=== PATIENT | male | born 1995 | race Caucasian/White ===

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

== ENCOUNTER 2017-03-08 19:59 | Emergency (ER) | payer MEDICAID, OTHER ==
[~2017-03-08] VITALS: Ht 167.6 cm; Wt 72.5 kg
[~2017-03-08 19:59] MED LIST changes: +BENZ100C70 PO; +D-ME473S18 PO
[2017-03-08 20:23] VITALS: Ht 167.6 cm; Wt 72.5 kg
[2017-03-08] MEDS ORDERED: SOD CHLORIDE 0.9% 1,000 ML IV STA (22:08)
[2017-03-08] MEDS ORDERED: ONDANSETRON 4 MG INJ IV STA (22:08)
[2017-03-08] MEDS ORDERED: morphine 4 MG/ML VIAL IV STA (22:08)
--- NOTE | 2017-03-08 22:37 | ERD ---
ER Documentation Chief Complaint Date/Time DATE: 03/08/17 TIME: 22:35 Chief Complaint RLQ PAIN X3 HRS AGO. +NAUSEA DENIES FEVER HPI 21-year-old male presents to emergency department for complaints of right lower quadrant abdominal pain radiating to the right flank area started 3 hours prior to arrival. Patient describes the pain as throbbing pain, 8/10 scale, accompanied with nausea. Patient denies any fever or chills. Patient denies any vomiting. Patient denies any hematuria or dysuria. Patient denies any diarrhea or constipation. Patient did not take any medications to help with symptoms. ROS All systems reviewed and are negative except as per history of present illness. Medications Home Meds Reported Medications [none] Unknown Strength No Conflict Check 03/08/17 Allergies Allergies: Coded Allergies: No Known Allergy (Unverified , 03/08/17) PMhx/Soc Medical and Surgical Hx: pt denies Medical Hx, pt denies Surgical Hx History of Surgery: No Anesthesia Reaction: No Hx Neurological Disorder: No Hx Respiratory Disorders: No Hx Cardiac Disorders: No Hx Psychiatric Problems: No Hx Miscellaneous Medical Probl: No Hx Tobacco Use: No Smoking Status: Never smoker FmHx Family History: No coronary disease, No diabetes, No other Physical Exam Vitals Vital Signs Date Time Temp Pulse Resp B/P Pulse Ox O2 Delivery O2 Flow Rate FiO2 03/08/17 20:23 97.3 78 18 120/81 97 Physical Exam GENERAL: The patient is well developed and appropriate for usual state of health, in no apparent distress. CHEST: Clear to auscultation bilaterally. There are no rales, wheezes or rhonchi. HEART: Regular rate and rhythm. No murmurs, clicks, rubs or gallops. No S3 or S4. ABDOMEN: Soft, tenderness on palpation on the right lower quadrant. Good bowel sounds. No rebound or guarding. No gross peritonitis. No gross organomegaly or masses. No Serra sign. BACK: No midline or flank tenderness. EXTREMITIES: Equal pulses bilaterally. There is no peripheral clubbing, cyanosis or edema. No focal swelling or erythema. Full range of motion. Grossly neurovascularly intact. NEURO: Alert and oriented. Cranial nerves 2-12 intact. Motor strength in all 4 extremities with 5/5 strength. Sensation grossly intact. Normal speech and gait. SKIN: There is no apparent rash or petechia. The skin is warm and dry. HEMATOLOGIC AND LYMPHATIC: There is no evidence of excessive bruising or lymphedema. No gross cervical, axillary, or inguinal lymphadenopathy. Result Diagram: 03/08/17221903/08/172219 Results 24 hrs Laboratory Tests Test 03/08/17 22:20 White Blood Count 8.310^3/ul Red Blood Count 5.0510^6/ul Hemoglobin 15.8g/dl Hematocrit 45.9% Mean Corpuscular Volume 90.9fl Mean Corpuscular Hemoglobin 31.3pg Mean Corpuscular Hemoglobin Concent 34.4g/dl Red Cell Distribution Width 12.3% Platelet Count 74856^3/UL Mean Platelet Volume 9.7fl Neutrophils % 52.4% Lymphocytes % 35.1% Monocytes % 8.8% Eosinophils % 2.5% Basophils % 0.8% Nucleated Red Blood Cells % 0.0/100WBC Neutrophils # (Manual) 4.310^3/ul Lymphocytes # 2.910^3/ul Monocytes # 0.710^3/ul Eosinophils # 0.210^3/ul Basophils # 0.110^3/ul Nucleated Red Blood Cells # 0.010^3/ul Urine Color YELLOW Urine Clarity CLEAR Urine pH 7.0 Urine Specific [place] 1.023 Urine Ketones NEGATIVEmg/dL Urine Nitrite NEGATIVEmg/dL Urine Bilirubin NEGATIVEmg/dL Urine Urobilinogen NEGATIVEmg/dL Urine Leukocyte Esterase NEGATIVELeu/ul Urine Hemoglobin NEGATIVEmg/dL Urine Glucose NEGATIVEmg/dL Urine Total Protein NEGATIVEmg/dl Sodium Level 139mmol/L Potassium Level 3.9mmol/L Chloride Level 102mmol/L Carbon Dioxide Level 29mmol/L Anion Gap 12 Blood Urea Nitrogen 19mg/dl Creatinine 0.86mg/dl Glucose Level 82mg/dl Calcium Level 9.5mg/dl Total Bilirubin 0.3mg/dl Direct Bilirubin 0.00mg/dl Indirect Bilirubin 0.3mg/dl Aspartate Amino Transf (AST/SGOT) 30IU/L Alanine Aminotransferase (ALT/SGPT) 58IU/L Alkaline Phosphatase 104IU/L Total Protein 8.1g/dl Albumin 4.6g/dl Globulin 3.50g/dl Albumin/Globulin Ratio 1.31 Lipase 128U/L Current Medications Medications (Trade) Dose Ordered Sig/Apolinar Route PRN Reason Start Time Stop Time Status Last Admin Dose Admin Sodium Chloride (NS) 1,000 ml @ 1,000 mls/hr Q1H STAT IV 03/08/17 22:08 03/08/17 23:07 DC 03/08/17 22:47 Morphine Sulfate (morphine) 4 mg ONCE STAT IV 03/08/17 22:08 03/08/17 22:10 DC 03/08/17 22:42 Ondansetron HCl (Zofran Inj) 4 mg ONCE STAT IV 03/08/17 22:08 03/08/17 22:10 DC 03/08/17 22:42 Patient was given medication for pain here in emergency department, after treatment, patient verbalized feeling much better. Patient's pain is improved. Patient was given Zofran here in the emergency department. After treatment, patient was able to tolerate po fluids here in the emergency department without any vomiting. There is no signs and symptoms of dehydration. Normal saline IV bolus was given here in emergency department for rehydration, patient tolerated IV fluids. PROCEDURE: CT Abdomen and pelvis without contrast. CLINICAL INDICATION: Abdominal pain. TECHNIQUE: CT scan of the abdomen and pelvis was performed on a multi- detector high-resolution CT scanner. Contiguous axial images were obtained from the lung bases to the ischial tuberosities without intravenous contrast. Coronal and sagittal reformatted images were also obtained. Images were reviewed on the PACS workstation. One or more of the following dose reduction techniques were used: - Automated exposure control. - Adjustment of the mA and/or kV according to patient size. - Use of iterative reconstruction technique. Exam CTD/vol = 9.45 mGy. Total exam DLP = 516.83 mGy-cm. COMPARISON: None. FINDINGS: Evaluation of the lung bases demonstrates minimal left basilar atelectasis. Abdomen: The liver is normal in size. There is no focal mass or dilatation of the biliary tree. The gallbladder is not distended. The spleen, pancreas and bilateral adrenal glands are within normal limits. Bilateral kidneys are normal in size with no contour deforming mass identified. There is no radiopaque renal or ureteral calculus identified. There is no hydronephrosis or hydroureter. There is no retroperitoneal adenopathy. The abdominal aorta is of normal caliber. There is a tiny umbilical hernia containing fat. There is no abnormal bowel wall thickening or distension. There is no bowel obstruction or free air. A normal appendix is identified. There is no diverticulosis or diverticulitis. There is no ascites. Pelvis: The bladder is unremarkable. The prostate and seminal vesicles are within normal limits. There is no significant pelvic adenopathy or free fluid. Evaluation of the osseous structures demonstrates no suspicious lytic or blastic lesion. There is a defect of the left pars interarticularis of L5. IMPRESSION: No acute abnormality identified within the abdomen and pelvis. Left pars defect of L5. .Alexandre Salmeron MD, Date Time Electronically viewed and signed by .Alexandre Salmeron MD, MD on 03/08/2017 23:01 .T/ CC: CLARISSE GONZALEZ CD TECHNICIAN Procedures/MDM Medical Decision Making: Abdominal pain nonspecific at this time, can be abdominal wall strain, musculoskeletal pain, back pain back strain, no appendicitis noted, no leukocytosis, no bandemia, patient does not have any fever. can be also viral in origin. There is low suspicion for abdominal emergencies at this time. Patients abdominal exam is normal upon reevaluation. Patients radiology exam does not show any abdominal emergencies at this time. There is low suspicion for appendicitis, cholecystitis, abdominal aortic aneurysms or peritonitis at this time. There is low suspicion for sepsis. Patient appears well and is hemodynamically stable. Disposition: Home. Condition: Stable Prescription [place], Zofran Instructions: Patient is advised to take medications as prescribed. Patient is advised to rest, increase fluid intake and do brat diet for next 1-2 days and progress as tolerated. Patient is advised that if symptoms are worse, severe abdominal pain, uncontrolled vomiting, high fever, severe flank pain, worst signs and symptoms, to return to the emergency department immediately. Otherwise, patient can follow up with primary care doctor in 5-7 days. Disclaimer: Inadvertent spelling and grammatical errors are likely due to EHR/ dictation software use and do not reflect on the overall quality of patient care. Also, please note that the electronic time recorded on this note does not necessarily reflect the actual time of the patient encounter. Departure Diagnosis: Primary Impression: Abdominal pain Abdominal location: right lower quadrant Qualified Code: R10.31 - Right lower quadrant abdominal pain Condition: Stable Patient Instructions: Abdominal Pain Additional Instructions: Patient is advised to take medications as prescribed. Patient is advised to rest , increase fluid intake and do brat diet for next 1-2 days and progress as tolerated. Patient is advised that if symptoms are worse, severe abdominal pain , uncontrolled vomiting, high fever, severe flank pain, worst signs and symptoms , to return to the emergency department immediately. Otherwise, patient can follow up with primary care doctor in 5-7 days. CLARISSE GONZALEZ NP Mar 08, 2017 22:37
[2017-03-08 22:59] LABS: BASOPHIL # 0.1 10^3/ul (0.0-0.1); BASOPHILS % 0.8 % (0.0-2.0); EOSINOPHILS # 0.2 10^3/ul (0.0-0.5); EOSINOPHILS % 2.5 % (0.0-7.0); HEMATOCRIT 45.9 % (42.0-52.0); HEMOGLOBIN 15.8 g/dl (14.0-18.0); LYMPHOCYTES # 2.9 10^3/ul (0.8-2.9); LYMPHOCYTES % 35.1 % (18.0-55.0); MEAN CORPUSCULAR HEMOGLOBIN 31.3 pg (29.0-33.0); MEAN CORPUSCULAR HGB CONC 34.4 g/dl (32.0-37.0); MEAN CORPUSCULAR VOLUME 90.9 fl (72.0-104.0); MEAN PLATELET VOLUME 9.7 fl (7.4-10.4); MONOCYTE # 0.7 10^3/ul (0.3-0.9); MONOCYTES % 8.8 % (0.0-13.0); NEUTROPHILS % 52.4 % (30.0-74.0); PLATELET COUNT 285 10^3/UL (140-415); RED BLOOD COUNT 5.05 10^6/ul (4.70-6.10); RED CELL DISTRIBUTION WIDTH 12.3 % (11.5-14.5); WHITE BLOOD COUNT 8.3 10^3/ul (4.8-10.8)
--- NOTE | 2017-03-08 23:02 | RADRPT ---
PROCEDURE: CT Abdomen and pelvis without contrast. CLINICAL INDICATION: Abdominal pain. TECHNIQUE: CT scan of the abdomen and pelvis was performed on a multi-detector high-resolution CT scanner. Contiguous axial images were obtained from the lung bases to the ischial tuberosities wit hout intravenous contrast. Coronal and sagittal reformatted images were also obtained. Images were reviewed on the PACS workstation. One or more of the following dose reduction techniques were used: - Automated exposure control. - Adjustment of the mA and/or kV according to patient size. - Use of iterative reconstruction technique. Exam CTD/vol = 9.45 mGy. Total exam DLP = 516.83 mGy-cm. COMPARISON: None. FINDINGS: Evaluation of the lung bases demonstrates minimal left basilar atelectasis. Abdomen: The liver is normal in size. There is no focal mass or dilatation of the biliary tree. T he gallbladder is not distended. The spleen, pancreas and bilateral adrenal glands are within pippa l limits. Bilateral kidneys are normal in size with no contour deforming mass identified. There is no radiopaque renal or ureteral calculus identified. There is no hydronephrosis or hydroureter. T here is no retroperitoneal adenopathy. The abdominal aorta is of normal caliber. There is a tiny umbilical hernia containing fat. There is no abnormal bowel wall thickening or diste nsion. There is no bowel obstruction or free air. A normal appendix is identified. There is no di verticulosis or diverticulitis. There is no ascites. Pelvis: The bladder is unremarkable. The prostate and seminal vesicles are within normal limits. There is no significant pelvic adenopathy or free fluid. Evaluation of the osseous structures demonstrates no suspicious lytic or blastic lesion. There is a defect of the left pars interarticularis of L5. IMPRESSION: No acute abnormality identified within the abdomen and pelvis. Left pars defect of L5. .Alexandre Salmeron MD, Date Time Electronically viewed and signed by .Alexandre Salmeron MD, on 03/08/2017 23:01 .T/
[2017-03-08 23:17] LABS: ADD UMIC NO; UR ASCORBIC ACID NEGATIVE (NEGATIVE); UR BILIRUBIN (Dip) NEGATIVE (NEGATIVE); UR BLOOD (Dip) NEGATIVE (NEGATIVE); UR CLARITY CLEAR (CLEAR); UR COLOR YELLOW (YELLOW); UR GLUCOSE (Dip) NEGATIVE (NEGATIVE); UR KETONES (Dip) NEGATIVE (NEGATIVE); UR LEUKOCYTE ESTERASE (Dip) NEGATIVE Leu/ul (NEGATIVE); UR NITRITE (Dip) NEGATIVE (NEGATIVE); UR SPECIFIC GRAVITY (Dip) 1.023 (1.003-1.030); UR TOTAL PROTEIN (Dip) NEGATIVE (NEGATIVE); UR UROBILINOGEN (Dip) NEGATIVE (NEGATIVE)
[2017-03-08 23:23] LABS: ALBUMIN 4.6 g/dl (3.3-4.9); ALBUMIN/GLOBULIN RATIO 1.31; BILIRUBIN,INDIRECT 0.3 mg/dl (0-1.1); BILIRUBIN,TOTAL 0.3 mg/dl (0.2-1.3); CALCIUM 9.5 mg/dl (8.4-10.2); CREATININE 0.86 mg/dl (0.61-1.24); POTASSIUM 3.9 mmol/L (3.5-5.1); TOTAL PROTEIN 8.1 g/dl (6.1-8.1)
[2017-03-09] MEDS ORDERED: ONDA4TAB14 PO (00:36)
[2017-03-09] MEDS ORDERED: HYDR-906 PO (00:36)
[2017-03-09 01:21] VITALS: BP 132/82; PULSE 79; RESP 20; TEMP 97.6
== END 2017-03-09 01:00 | disposition home or self-care (01) ==
LOC: MERGE 19:59 → FTE 19:59
DX: R10.31 Right lower quadrant pain (principal); R11.0 Nausea
CPT/HCPCS: 36415; 74176; 80053; 81003; 83690; 85025; 96374; 96375; J2270; J2405; J7030; Z7502

== ENCOUNTER 2017-03-25 23:07 | Emergency (ER) | payer OTHER ==
[~2017-03-25] VITALS: Ht 167.6 cm; Wt 53.0 kg
[~2017-03-25 23:07] MED LIST changes: +HYDR-906 PO; +ONDA4TAB14 PO
[2017-03-25 23:10] VITALS: Ht 167.6 cm; Wt 53.0 kg
[2017-03-26] MEDS ORDERED: HC30CR25 TOP (00:26)
[2017-03-26] MEDS ORDERED: CLOT30CR24 TOP (00:26)
[2017-03-26] MEDS ORDERED: MUPI22OI2 TOP (00:27)
--- NOTE | 2017-03-26 03:35 | ERD ---
ER Documentation Chief Complaint Date/Time DATE: 03/26/17 TIME: 03:33 Chief Complaint scrotal pain since 4 pm today HPI This patient is a 22-year-old male presenting to the emergency department with complaints of rash to his groin area bilaterally. He first noticed this at 4 PM today. He denies scrotal pain, scrotal trauma, testicular swelling, penile discharge, fevers, chills, or other complaints currently. He is sexually active , however last sexual encounter was approximately 2 months ago. ROS All systems reviewed and are negative except as per history of present illness. Medications Home Meds Active Scripts Mupirocin* (Bactroban*) 2% -22 Gram Oint...g., 1 APPLIC TOP BID for 7 Days, #1 TUB Prov:ATIF MAYES PA-C 03/26/17 Hydrocortisone* Topical (Hydrocortisone* Topical) 2.5%-28.3 Gm Cream..g., 1 APPLIC TOP BID Y for ITCHING, #1 TUB Prov:ATIF MAYES PA-C 03/26/17 Clotrimazole* (Clotrimazole* AF) 1% - 30 Gm Cream.gm., 1 APPLIC TOP BID for 7 Days, #1 TUB Prov:ATIF MAYES PA-C 03/26/17 Ondansetron (Ondansetron Odt) 4 Mg Tab.rapdis, 4 MG PO Q8 Y for NAUSEA AND/OR VOMITING, #30 TAB Prov:CLARISSE GONZALEZ [employer] WORKER 03/09/17 Hydrocodone/Acetaminophen ([place] 5-325 Tablet) 1 Each Tablet, 1 TAB PO Q6H Y for SEVERE PAIN LEVEL 7-10, #20 TAB Prov:CLARISSE GONZALEZ [employer] WORK[employer] 03/09/17 Dextromethorphan Hb-Promethazine Hcl (Promethazine DM Syrup) 473 Ml Syrup, 5 ML PO QHS Y for COUGH, #100 ML Prov:ATIF MAYES PA-C 07/17/16 Benzonatate* (Tessalon Perle*) 100 Mg Capsule, 100 MG PO Q8H Y for COUGH, #20 CAP Prov:ATIF MAYES PA-C 07/17/16 Acetaminophen* (Tylophen*) 500 Mg Capsule, 1 CAP PO Q6H Y for PAIN AND OR ELEVATED TEMP, #20 CAP Prov:LO WANG PA-C 05/23/16 Reported Medications [none] Unknown Strength No Conflict Check 03/08/17 Discontinued Scripts Hydrocortisone* Topical (Hydrocortisone* Topical) 2.5%-28.3 Gm Cream..g., 1 APPLIC TOP BID for 5 Days, #1 TUB Prov:ATIF MAYES PA-C 03/26/17 Allergies Allergies: Coded Allergies: No Known Drug Allergies (Verified Allergy, Mild, 07/17/16) PMhx/Soc History of Surgery: No Anesthesia Reaction: No Hx Neurological Disorder: No Hx Respiratory Disorders: No Hx Cardiac Disorders: No Hx Psychiatric Problems: No Hx Miscellaneous Medical Probl: No Hx Alcohol Use: Yes (socially) Hx Substance Use: No Hx Tobacco Use: No Smoking Status: Never smoker Physical Exam Vitals Vital Signs Date Time Temp Pulse Resp B/P Pulse Ox O2 Delivery O2 Flow Rate FiO2 03/25/17 23:10 97.8 83 20 138/91 99 Physical Exam Const: Nontoxic, well-appearing male in no acute distress. Head: Atraumatic Eyes: Normal Conjunctiva ENT: Normal External Ears, Nose and Mouth. Neck: Full range of motion..~ No meningismus. Abd: Soft, non tender, non distended. Normal bowel sounds Exam: There is a macular papular rash noted to the groin area bilaterally Scrotum: Normal Hernia: None Testes/Epid: Non-tender w/ normal lie Lymph: No inguinal lymphadenopathy Discharge: None Skin: No petechiae or rashes Back: No midline or flank tenderness Ext: No cyanosis, or edema Neur: Awake and alert Psych: Normal Mood and Affect Procedures/MDM 22-year-old male presents to the emergency department with complaints of rash to his groin. Physical examination is concerning for bacterial versus fungal versus allergic rash. Low suspicion for sexually transmitted infections, testicular torsion, or other genitourinary emergencies. The patient was stable for discharge with a prescription for topical treatments for his rash. Strict ER return precautions were discussed. Close follow-up with the primary care physician was advised. Departure Diagnosis: Primary Impression: Rash and other nonspecific skin eruption Condition: Fair Patient Instructions: Self-Care for Skin Rashes Additional Instructions: Follow up with your PCP within the next 1-3 days for a repeat evaluation. If you require a referral to a specialist, your Primary Care Provider may be able to provide this for you. In most patient cases, a referral is not required. If you have further questions regarding this matter, please ask your Primary Care Provider. Return the the emergency department immediately if symptoms worsen or change. If you have any questions regarding medications, ask your pharmacist or us before you leave. If any adverse reactions, occur while taking your medications, discontinue the treatment and return to the emergency department immediately. If any new or worsening symptoms, uncontrolled fevers, or other unexplained symptoms occur, return to the emergency department immediately. Take your medications as directed, and complete the entire course of treatment. ATIF MAYES PA-C Mar 26, 2017 03:35
== END 2017-03-26 00:55 | disposition home or self-care (01) ==
LOC: FTE 23:07
DX: R21 Rash and other nonspecific skin eruption (principal)
CPT/HCPCS: 99283

== ENCOUNTER 2017-09-02 00:29 | Emergency (ER) | END 2017-09-02 06:40 | disposition home or self-care (01) ==

== ENCOUNTER 2017-09-05 23:36 | Emergency (ER) | END 2017-09-06 07:35 | disposition home or self-care (01) ==

== ENCOUNTER 2017-09-20 12:05 | Emergency (ER) | END 2017-09-20 15:01 | disposition home or self-care (01) ==

== ENCOUNTER 2017-11-15 12:57 | Emergency (ER) | END 2017-11-15 15:41 | disposition home or self-care (01) ==

== ENCOUNTER → 2018-03-11 | Emergency (ER) | END | disposition home or self-care (01) ==

== ENCOUNTER 2018-03-13 20:54 | Emergency (ER) | END 2018-03-14 00:45 | disposition home or self-care (01) ==

== ENCOUNTER 2018-04-22 13:40 | Emergency (ER) | END 2018-04-22 15:31 | disposition home or self-care (01) ==

== ENCOUNTER 2018-06-21 10:35 | Emergency (ER) | payer OTHER ==
[~2018-06-21] VITALS: Ht 167.6 cm; Wt 71.1 kg
[~2018-06-21 10:35] MED LIST changes: +BENZ-6 PO; -BENZ100C70 PO; +CLOT30CR24 TOP; +DICY10CA40 PO; +DOXY100T20 PO; +HC30CR25 TOP; +HYDR-4011 PO; -HYDR-906 PO; +IBUP-1541 PO; +IBUP-1542 PO; +MUPI22OI2 TOP; +NAPR-985 PO; +VALA10004 PO; +ZINC28OI TP
[2018-06-21 10:41] VITALS: Ht 167.6 cm; Wt 71.1 kg
[2018-06-21] MEDS ORDERED: CLOT30CR24 TOP (11:24)
--- NOTE | 2018-06-21 11:30 | ERD ---
ER Documentation Chief Complaint Chief Complaint Complains of testicular pain since today HPI Patient is a 23-year-old male who presents ER for concerns of testicular pain x 2 weeks. Patient also reports a rash in his groin region times 2 days. Patient states that his groin area is erythematous and itchy. Patient states that he has not showered for 2 days. Patient states he did work out and did remain in his sweaty clothes for a while prior to onset of rash. Patient denies any fevers or chills. Patient states he recently had sexual encounter with a new partner. Patient denies any penile discharge or bleeding. ROS All systems reviewed and are negative except as per history of present illness. Medications Home Meds Active Scripts Clotrimazole* (Clotrimazole* AF) 1% - 30 Gm Cream.gm., 1 APPLIC TOP BID for 7 Days, #1 TUB Prov:CAMERON RENO PA-C 06/21/18 Dicyclomine HCl (Dicyclomine HCl) 10 Mg Capsule, 10 MG PO TID PRN for ABDOMINAL CRAMPING, #20 CAP Prov:EDWINA SAEZ 03/14/18 Ibuprofen* (Ibuprofen*) 600 Mg Tablet, 600 MG PO Q6, #15 TAB Prov:EDWINA SAEZ 03/14/18 Ibuprofen* (Ibuprofen*) 400 Mg Tablet, 400 MG PO TID, #14 TAB Prov:JORDAN LOPEZ MD 11/15/17 Zinc Ox/Camphor/Phenol/Jones Ac (UNGUENTINE OINTMENT) 28 Gm Oint...g., 28 GM TP BID for 7 Days Prov:JORDAN LOPEZ MD 11/15/17 Valacyclovir HCl (Valtrex) 1,000 Mg Tablet, 1000 MG PO TID for 7 Days, TAB Prov:JORDAN LOPEZ MD 11/15/17 Naproxen* (Naprosyn*) 500 Mg Tablet, 500 MG PO BID PRN for PAIN AND/OR INFLAMMATION, #30 TAB Prov:CARA GUZMAN PA-C 09/20/17 Doxycycline Hyclate* (Doxycycline Hyclate*) 100 Mg Tablet.dr, 100 MG PO BID for 10 Days, TAB Prov:CARA GUZMAN PA-C 09/06/17 Ibuprofen* (Motrin*) 600 Mg Tab, 600 MG PO Q6H PRN for PAIN AND OR ELEVATED TEMP, #30 TAB Prov:CLARISSE GONZALEZ GERICARE AIDE TEACHER 09/02/17 Hydrocodone/Acetaminophen (Bigfoot 5-325 Tablet) 1 Each Tablet, 1 TAB PO Q6H PRN for PAIN, #7 TAB Prov:CAMERON RENO PA-C 04/28/17 Ibuprofen* (Motrin*) 600 Mg Tab, 600 MG PO Q6, #30 TAB Prov:CAMERON RENO PA-C 04/28/17 Mupirocin* (Bactroban*) 2% -22 Gram Oint...g., 1 APPLIC TOP BID for 7 Days, #1 TUB Prov:ATIF MAYES PA-C 03/26/17 Hydrocortisone* Topical (Hydrocortisone* Topical) 2.5%-28.3 Gm Cream..g., 1 APPLIC TOP BID PRN for ITCHING, #1 TUB Prov:ATIF MAYES PA-C 03/26/17 Clotrimazole* (Clotrimazole* AF) 1% - 30 Gm Cream.gm., 1 APPLIC TOP BID for 7 Days, #1 TUB Prov:ATIF MAYES PA-C 03/26/17 Ondansetron (Ondansetron Odt) 4 Mg Tab.rapdis, 4 MG PO Q8 PRN for NAUSEA AND/OR VOMITING, #30 TAB Prov:CLARISSE GONZALEZ NP 03/09/17 Hydrocodone/Acetaminophen (Bigfoot 5-325 Tablet) 1 Each Tablet, 1 TAB PO Q6H PRN for SEVERE PAIN LEVEL 7-10, #20 TAB Prov:CLARISSE GONZALEZ GERICARE AIDE TEACHER 03/09/17 Dextromethorphan Hb-Promethazine Hcl (Promethazine DM Syrup) 473 Ml Syrup, 5 ML PO QHS PRN for COUGH, #100 ML Prov:ATIF MAYES PA-C 07/17/16 Benzonatate* (Tessalon Perle*) 100 Mg Capsule, 100 MG PO Q8H PRN for COUGH, #20 CAP Prov:ATIF MAYES PA-C 07/17/16 Acetaminophen* (Tylophen*) 500 Mg Capsule, 1 CAP PO Q6H PRN for PAIN AND OR ELEVATED TEMP, #20 CAP Prov:LO WANG PA-C 05/23/16 Reported Medications [none] Unknown Strength No Conflict Check 03/08/17 Allergies Allergies: Coded Allergies: No Known Drug Allergies (Verified Allergy, Mild, 03/13/18) PMhx/Soc History of Surgery: No Anesthesia Reaction: No Hx Neurological Disorder: No Hx Respiratory Disorders: No Hx Cardiac Disorders: No Hx Psychiatric Problems: Yes (DEPRESSION, ANXIETY) Hx Miscellaneous Medical Probl: No Hx Alcohol Use: Yes (Socially) Hx Substance Use: No Hx Tobacco Use: Yes Smoking Status: Current every day smoker FmHx Family History: No diabetes Physical Exam Vitals Vital Signs Date Temp Pulse Resp B/P (MAP) Pulse Ox O2 O2 Flow FiO2 Time Delivery Rate 06/21/18 97.3 72 20 128/72 98 10:41 (90) Physical Exam nanotechnology engineering technician Pedro, present throughout this part of the encounter. GENERAL: Well-developed, well-nourished male. Appears in no acute distress. HEAD: Normocephalic, atraumatic. EYES: Pupils are equally reactive bilaterally. EOMs grossly intact. No conjunctival erythema. ENT: Moist mucous membranes. No uvula deviation. No kissing tonsils. NECK: Supple. No meningismus. Normal range of motion of the neck. LUNG: Clear to auscultation bilaterally. No rhonchi, wheezing, rales or coarse breath sounds. HEART: Regular rate and rhythm. No murmurs, rubs or gallops. ABDOMEN: No scars, ecchymosis or rashes noted. Soft, nontender, and nondistended. Positive bowel sounds in all four quadrants. No rebound tender ness, no guarding. (-) McBurney's point tenderness. No CVA tenderness. MALE GENITALIA: Normal, uncircumcised penis without any lesions, masses or deformities. No penile discharge noted. Normal scrotum with erythematous skin noted on the testicular sac as well as perineal area. EXTREMITIES: Equal pulses bilaterally. No peripheral clubbing, cyanosis or edema. No unilateral leg swelling. NEUROLOGIC: Alert and oriented. Moving all four extremities without any difficulty. Normal speech. Steady gait. SKIN: Normal color. Warm and dry. No rashes or lesions. Results 24 hrs Laboratory Tests Test 06/21/18 11:13 Urine Color YELLOW Urine Clarity CLEAR Urine pH 6.0 Urine Specific Manson 1.017 Urine Ketones NEGATIVE mg/dL Urine Nitrite NEGATIVE mg/dL Urine Bilirubin NEGATIVE mg/dL Urine Urobilinogen NEGATIVE mg/dL Urine Leukocyte Esterase NEGATIVE Tuyet/ul Urine Hemoglobin NEGATIVE mg/dL Urine Glucose NEGATIVE mg/dL Urine Total Protein NEGATIVE mg/dl Procedures/MDM ED COURSE: The patient was stable throughout ED course. I kept the patient and/or family informed of laboratory and diagnostic imaging results throughout the ED course. DIAGNOSTIC IMAGING: Read by radiologist. Patient: WENDY BARKER : 1995 Age: 23 Sex: M MR #: [id number] DOS: 06/21/18 1133 Ordering MD: CAMERON RENO PA-C Location: [facility]TE Room/Bed: PROCEDURE: US Scrotum. CLINICAL INDICATION: Pain, swelling TECHNIQUE: Multiple sonographic images of the scrotal region were obtained utilizing a linear array transducer with grayscale and color-flow and a Doppler imaging. The images were reviewed on a high-resolution PACS workstation. COMPARISON: 09/20/2017 FINDINGS: The right testicle is well visualized and has a normal echotexture. There are multiple echogenic foci. The right testicle measures 2.9 x 2.0 x 1.9 cm. There is normal color-flow. The right epididymis is visualized and unremarkable in appearance. There is normal color-flow. The left testicle is well visualized and has a normal echotexture. There are multiple echogenic foci. The left testicle measures 3.4 x 2.3 x 2.3 cm. There is normal color-flow. The left epididymis is visualized and is unremarkable in appearance. There is normal color-flow. There is a mild right hydrocele. RPTAT: AA IMPRESSION: Bilateral testicular microlithiasis. Mild right hydrocele. .Morales Gill MD, Date Time Electronically viewed and signed by .Morales Gill MD, MD on 06/21/2018 13:00 .S/ CC: CAMERON RENO PA-C [id number] MEDICAL DECISION MAKING: This is a 23-year-old male presents here for concerns of testicular pain times 2 weeks as well as rash in his testicular region times 2 days. Vital signs were reviewed. Patient was afebrile. Patient is not diabetic. Male nanotechnology engineering technician Pedro was present throughout examination and history. Physical exam findings were concerning for tinea cruris. Review of the patient's medical records show the patient has had similar testicular pain in the past. Patient has had a negative testicular ultrasound exams. I have low suspicion for testicular torsion at this time. UA was negative for acute infection or hematuria. Urine gonorrhea and chlamydia were pending. Patient was advised we will call him with results in 2-3 days. Patient will be treated based on results. Testicular ultrasound showed Bilateral testicular microlithiasis. Mild right hydrocele. At this time the patient presentation was consistent with tinea creases and hydrocele. Low suspicion for UTI, pyelonephritis, Ashutosh gangrene, nephrolithiasis, appendicitis, epididymitis, urethritis, orchitis, balanitis, prostatitis, phimosis, priapism, penile contusion, incarcerated hernia or strangulated hernia. Patient was nontoxic, [id number] prior to discharge. PRESCRIPTIONS: Clotrimazole cream DISCHARGE: At this time, patient is stable for discharge and outpatient management. Patient was advised to follow-up with urologist on outpatient basis. I have instructed the patient to follow-up with his/her primary care physician in 1-2 days. I have discussed with the patient the possibility of needing to see an social media content specialist for further workup and imaging if the pain persists. I have instructed the patient to promptly return to the ER for any new or worsening symptoms including increased pain, swelling, redness, warmth or fever. The patient and/or family expressed understanding of and agreement with this plan. All questions were answered. Home care instructions were provided. Disclaimer: Inadvertent spelling and grammatical errors are likely due to EHR/dictation software use and do not reflect on the overall quality of patient care. Also, please note that the electronic time recorded on this note does not necessarily reflect the actual time of the patient encounter. Departure Diagnosis: Primary Impression: Tinea cruris Additional Impressions: Screening for STD (sexually transmitted disease) Hydrocele Hydrocele type: unspecified Qualified Codes: N43.3 - Hydrocele, unspecified Condition: Fair Patient Instructions: Stephen Borreros, General Referrals: [facility] YOU HAVE RECEIVED A MEDICAL SCREENING EXAM AND THE RESULTS INDICATE THAT YOU DO NOT HAVE A CONDITION THAT REQUIRES URGENT TREATMENT IN THE EMERGENCY DEPARTMENT. FURTHER EVALUATION AND TREATMENT OF YOUR CONDITION CAN WAIT UNTIL YOU ARE SEEN IN YOUR DOCTORS OFFICE WITHIN THE NEXT 1-2 DAYS. IT IS YOUR RESPONSIBILITY TO MAKE AN APPOINTMENT FOR FOLOW-UP CARE. IF YOU HAVE A PRIMARY DOCTOR --you should call your primary doctor and schedule an appointment IF YOU DO NOT HAVE A PRIMARY DOCTOR YOU CAN CALL OUR PHYSICIAN REFERRAL HOTLINE AT IF YOU CAN NOT AFFORD TO SEE A PHYSICIAN YOU CAN CHOSE FROM THE FOLLOWING [facility] [address] [facility] [address] [facility] [facility] [address] [facility] [address] [facility] [address] [facility] [facility] [address] [facility] [facility] YOU HAVE RECEIVED A MEDICAL SCREENING EXAM AND THE RESULTS INDICATE THAT YOU DO NOT HAVE A CONDITION THAT REQUIRES URGENT TREATMENT IN THE EMERGENCY DEPARTMENT. FURTHER EVALUATION AND TREATMENT OF YOUR CONDITION CAN WAIT UNTIL YOU ARE SEEN IN YOUR DOCTORS OFFICE WITHIN THE NEXT 1-2 DAYS. IT IS YOUR RESPONSIBILITY TO MAKE AN APPOINTMENT FOR FOLOW-UP CARE. IF YOU HAVE A PRIMARY DOCTOR --you should call your primary doctor and schedule and appointment IF YOU DO NOT HAVE A PRIMARY DOCTOR YOU CAN CALL OUR PHYSICIAN REFERRAL HOTLINE AT . IF YOU CAN NOT AFFORD TO SEE A PHYSICIAN YOU CAN CHOSE FROM THE FOLLOWING [facility]: [facility] [address] [place] [address] [facility] [address] [place] [address] [address] Additional Instructions: Follow-up with your primary care physician for additional STD testing. Call your primary care doctor TOMORROW for an appointment during the next 1-2 days.See the doctor sooner or return here if your condition worsens before your appointment time. CAMERON RENO PA-C Jun 21, 2018 11:30
[2018-06-21 13:40] VITALS: BP 122/76; PULSE 74; RESP 18
== END 2018-06-21 13:41 | disposition home or self-care (01) ==
LOC: FTE 10:35
DX: B35.6 Tinea cruris (principal); N43.3 Hydrocele, unspecified; F17.210 Nicotine dependence, cigarettes, uncomplicated; Z11.3 Encounter for screening for infections with a predominantly sexual mode of transmission
CPT/HCPCS: 76870; 81003; 87591

== ENCOUNTER 2018-08-29 13:22 | Emergency (ER) | payer OTHER ==
[~2018-08-29] VITALS: Ht 172.7 cm; Wt 71.6 kg
[2018-08-29 13:35] VITALS: BP 124/80; PULSE 76; RESP 20; Ht 172.7 cm; Wt 71.6 kg
[2018-08-29] MEDS ORDERED: AMOX500C2 PO (16:09)
[2018-08-29] MEDS ORDERED: IBUP-1542 PO (16:10)
[2018-08-29] MEDS ORDERED: GUAI5SYR2 PO (16:15)
--- NOTE | 2018-08-29 16:15 | ERD ---
ER Documentation Chief Complaint Chief Complaint Complains of a sore throat with fever x 2 days HPI Patient is a 23-year-old male who presents the ER for concern of throat pain times 1 week. Patient states he feels a lump in his left neck. Patient states that the lump is tender. Patient denies any drooling, trismus or hyperextension of his neck. Patient states initially had fevers however no recent fevers.. Patient does report a mild dry cough. Patient denies any nausea, vomiting bowel pain or diarrhea. Patient denies any neck pain or neck stiffness. No recent travel. ROS All systems reviewed and are negative except as per history of present illness. Medications Home Meds Active Scripts Ibuprofen* (Motrin*) 600 Mg Tab, 600 MG PO Q6, #30 TAB Prov:CAMERON RENO PA-C 08/29/18 Amoxicillin* (Amoxicillin*) 500 Mg Cap, 500 MG PO BID for 7 Days, CAP Prov:CAMERON RENO PA-C 08/29/18 Clotrimazole* (Clotrimazole* AF) 1% - 30 Gm Cream.gm., 1 APPLIC TOP BID for 7 Days, #1 TUB Prov:CAMERON RENO PA-C 06/21/18 Dicyclomine HCl (Dicyclomine HCl) 10 Mg Capsule, 10 MG PO TID PRN for ABDOMINAL CRAMPING, #20 CAP Prov:EDWINA SAEZ 03/14/18 Ibuprofen* (Ibuprofen*) 600 Mg Tablet, 600 MG PO Q6, #15 TAB Prov:EDWINA SAEZ 03/14/18 Ibuprofen* (Ibuprofen*) 400 Mg Tablet, 400 MG PO TID, #14 TAB Prov:JORDAN LOPEZ MD 11/15/17 Zinc Ox/Camphor/Phenol/Jones Ac (UNGUENTINE OINTMENT) 28 Gm Oint...g., 28 GM TP BID for 7 Days Prov:JORDAN LOPEZ MD 11/15/17 Valacyclovir HCl (Valtrex) 1,000 Mg Tablet, 1000 MG PO TID for 7 Days, TAB Prov:JORDAN LOPEZ MD 11/15/17 Naproxen* (Naprosyn*) 500 Mg Tablet, 500 MG PO BID PRN for PAIN AND/OR INFLAMMATION, #30 TAB Prov:CARA GUZMAN PA-C 09/20/17 Doxycycline Hyclate* (Doxycycline Hyclate*) 100 Mg Tablet.dr, 100 MG PO BID for 10 Days, TAB Prov:CARA GUZMAN PA-C 09/06/17 Ibuprofen* (Motrin*) 600 Mg Tab, 600 MG PO Q6H PRN for PAIN AND OR ELEVATED TEMP, #30 TAB Prov:CLARISSE GONZALEZ NP 09/02/17 Hydrocodone/Acetaminophen (Spring[place] 5-325 Tablet) 1 Each Tablet, 1 TAB PO Q6H PRN for PAIN, #7 TAB Prov:CAMERON RENO PA-C 04/28/17 Ibuprofen* (Motrin*) 600 Mg Tab, 600 MG PO Q6, #30 TAB Prov:CAMERON RENO PA-C 04/28/17 Mupirocin* (Bactroban*) 2% -22 Gram Oint...g., 1 APPLIC TOP BID for 7 Days, #1 TUB Prov:ATIF MAYES PA-C 03/26/17 Hydrocortisone* Topical (Hydrocortisone* Topical) 2.5%-28.3 Gm Cream..g., 1 APPLIC TOP BID PRN for ITCHING, #1 TUB Prov:ATIF MAYES PA-C 03/26/17 Clotrimazole* (Clotrimazole* AF) 1% - 30 Gm Cream.gm., 1 APPLIC TOP BID for 7 Days, #1 TUB Prov:ATIF MAYES PA-C 03/26/17 Ondansetron (Ondansetron Odt) 4 Mg Tab.rapdis, 4 MG PO Q8 PRN for NAUSEA AND/OR VOMITING, #30 TAB Prov:CLARISSE GONZALEZ NP 03/09/17 Hydrocodone/Acetaminophen ([place] 5-325 Tablet) 1 Each Tablet, 1 TAB PO Q6H PRN for SEVERE PAIN LEVEL 7-10, #20 TAB Prov:CLARISSE GONZALEZ NP 03/09/17 Dextromethorphan Hb-Promethazine Hcl (Promethazine DM Syrup) 473 Ml Syrup, 5 ML PO QHS PRN for COUGH, #100 ML Prov:ATIF MAYES PA-C 07/17/16 Benzonatate* (Tessalon Perle*) 100 Mg Capsule, 100 MG PO Q8H PRN for COUGH, #20 CAP Prov:ATIF MAYES PA-C 07/17/16 Acetaminophen* (Tylophen*) 500 Mg Capsule, 1 CAP PO Q6H PRN for PAIN AND OR ELEVATED TEMP, #20 CAP Prov:LO WANG PA-C 05/23/16 Reported Medications [none] Unknown Strength No Conflict Check 03/08/17 Allergies Allergies: Coded Allergies: No Known Drug Allergies (Verified Allergy, Mild, 03/13/18) PMhx/Soc History of Surgery: No Anesthesia Reaction: No Hx Neurological Disorder: No Hx Respiratory Disorders: No Hx Cardiac Disorders: No Hx Psychiatric Problems: Yes (DEPRESSION, ANXIETY) Hx Miscellaneous Medical Probl: No Hx Alcohol Use: Yes (Socially) Hx Substance Use: No Hx Tobacco Use: Yes Smoking Status: Current some day smoker FmHx Family History: No diabetes Physical Exam Vitals Vital Signs Date Temp Pulse Resp B/P (MAP) Pulse Ox O2 O2 Flow FiO2 Time Delivery Rate 08/29/18 97.8 76 20 124/80 98 13:35 (95) Physical Exam GENERAL: Well-developed, well-nourished male. Appears in no acute distress. HEAD: Normocephalic, atraumatic. No deformities or ecchymosis. EYE: Pupils equal, round, and reactive to light. EOMs intact. No conjunctival erythema. No eye discharge. ENT: External ear without any masses or tenderness. Auditory canals clear bilaterally. TM visualized bilaterally, non-erythematous, non-bulging. Nasal mucosa pink with no discharge. Oropharynx is erythematous. No uvula deviation. No kissing tonsils. NECK: Supple. No meningismus. Normal ROM of the neck. Tender right cervical lymphadenopathy noted, 1 cm, round, movable. LUNG: Clear to auscultation bilaterally. No rhonchi, wheezing, rales or coarse breath sounds. HEART: Regular rate and rhythm. No murmurs, rubs or gallops. EXTREMITIES: Equal pulses bilaterally. No peripheral clubbing, cyanosis or edema. No unilateral leg swelling. NEUROLOGIC: Alert and oriented to person, place and time. Moving all four extremities. 5/5 strength in all extremities. Normal speech. Steady gait. SKIN: Normal color. Warm and dry. No rashes or lesions. Procedures/MDM MEDICAL DECISION MAKING: This is a 23-year-old male presents the ER for concerns of throat pain times 1 week. Vital signs were reviewed. Patient was afebrile. Patient was not hypoxic. Centor score was 3 out of 4. I will empirically treat patient with course of antibiotics at this time. Low suspicion for pneumonia, meningitis, sinusitis, otitis externa, acute otitis media, epiglottitis or peritonsillar abscess. Patient was nontoxic, [id number] prior to discharge. PRESCRIPTIONS: Amoxicillin, ibuprofen, Robitussin DM DISCHARGE: At this time, patient is stable for discharge and outpatient management. Supportive therapies such as OTC throat lozenges, salt water gurgles, popsicles and jello discussed. I have instructed the patient to follow-up with his/her primary care physician in 1-2 days. I have instructed the patient to promptly return to the ER for any new or worsening symptoms including increased pain, swelling, fever, nausea, vomiting, weakness or difficulty breathing. The patient and/or family expressed understanding of and agreement with this plan. All questions were answered. Home care instructions were provided. Disclaimer: Inadvertent spelling and grammatical errors are likely due to EHR/dictation software use and do not reflect on the overall quality of patient care. Also, please note that the electronic time recorded on this note does not necessarily reflect the actual time of the patient encounter. Departure Diagnosis: Primary Impression: Pharyngitis Pharyngitis/tonsillitis etiology: unspecified etiology Qualified Codes: J02.9 - Acute pharyngitis, unspecified Condition: Stable Patient Instructions: Pharyngitis, Strep (Presumed) Referrals: [facility] YOU HAVE RECEIVED A MEDICAL SCREENING EXAM AND THE RESULTS INDICATE THAT YOU DO NOT HAVE A CONDITION THAT REQUIRES URGENT TREATMENT IN THE EMERGENCY DEPARTMENT. FURTHER EVALUATION AND TREATMENT OF YOUR CONDITION CAN WAIT UNTIL YOU ARE SEEN IN YOUR DOCTORS OFFICE WITHIN THE NEXT 1-2 DAYS. IT IS YOUR RESPONSIBILITY TO MAKE AN APPOINTMENT FOR FOLOW-UP CARE. IF YOU HAVE A PRIMARY DOCTOR --you should call your primary doctor and schedule an appointment IF YOU DO NOT HAVE A PRIMARY DOCTOR YOU CAN CALL OUR PHYSICIAN REFERRAL HOTLINE AT IF YOU CAN NOT AFFORD TO SEE A PHYSICIAN YOU CAN CHOSE FROM THE FOLLOWING [facility] [address] [facility] [address] [facility] [address] [facility] [address] [facility] [address] [facility]. [address] [facility]. [facility] YOU HAVE RECEIVED A MEDICAL SCREENING EXAM AND THE RESULTS INDICATE THAT YOU DO NOT HAVE A CONDITION THAT REQUIRES URGENT TREATMENT IN THE EMERGENCY DEPARTMENT. FURTHER EVALUATION AND TREATMENT OF YOUR CONDITION CAN WAIT UNTIL YOU ARE SEEN IN YOUR DOCTORS OFFICE WITHIN THE NEXT 1-2 DAYS. IT IS YOUR RESPONSIBILITY TO MAKE AN APPOINTMENT FOR FOLOW-UP CARE. IF YOU HAVE A PRIMARY DOCTOR --you should call your primary doctor and schedule and appointment IF YOU DO NOT HAVE A PRIMARY DOCTOR YOU CAN CALL OUR PHYSICIAN REFERRAL HOTLINE AT . IF YOU CAN NOT AFFORD TO SEE A PHYSICIAN YOU CAN CHOSE FROM THE FOLLOWING [facility]: [facility] [address] [place] [address] [facility] [address] [place] [address] [facility] [address] [place] [address] Additional Instructions: Call your primary care doctor TOMORROW for an appointment during the next 1-2 days.See the doctor sooner or return here if your condition worsens before your appointment time. CAMERON RENO PA-C Aug 29, 2018 16:15
== END 2018-08-29 16:45 | disposition home or self-care (01) ==
LOC: FTE 13:22
DX: J02.9 Acute pharyngitis, unspecified (principal); F17.210 Nicotine dependence, cigarettes, uncomplicated
CPT/HCPCS: 99283

== ENCOUNTER 2018-11-04 12:01 | Emergency (ER) | payer OTHER ==
[~2018-11-04] VITALS: Ht 165.1 cm; Wt 74.1 kg
[~2018-11-04 12:01] MED LIST changes: +AMOX500C2 PO; +GUAI5SYR2 PO
[2018-11-04 12:03] VITALS: BP 148/94; PULSE 90; RESP 19; Ht 165.1 cm; Wt 74.1 kg
[2018-11-04] MEDS ORDERED: LORAZEPAM 0.5 MG TAB PO ONE (12:30)
--- NOTE | 2018-11-04 13:44 | ERD ---
ER Documentation Chief Complaint Chief Complaint pressure like pain @ left chest and left arm numbness HPI Patient is a 23-year-old male with past medical history of anxiety, who presents ER for concerns of a left-sided chest pain which started around 7:30 AM today. Patient states he also feels that his left arm is numb and his fingers and hands are tingling.. Patient states the pain feels as if it is a pressure-like sensation. Pain comes and goes. Patient states he also feels as if his heart is racing. Patient denies any associated shortness of breath, nausea, vomiting, diaphoresis, LOC. Patient denies any fevers or chills. Patient denies cough. Patient states his symptoms started after he went to a doctor's appointment to check on his "stomach ulcers". Patient states he is stressed about his "health". Patient denies any homicidal or suicidal ideations. Patient denied any leg swelling, recent surgeries, travel. ROS All systems reviewed and are negative except as per history of present illness. Medications Home Meds Active Scripts Guaifenesin-Dextromethorphan* (Robitussin* DM) 100MG/10MG/5ML Syrup, 5 ML PO Q4H PRN for COUGH, #4 OZ Prov:CAMERON RENO-C 08/29/18 Ibuprofen* (Motrin*) 600 Mg Tab, 600 MG PO Q6, #30 TAB Prov:CAMERON RENO-C 08/29/18 Amoxicillin* (Amoxicillin*) 500 Mg Cap, 500 MG PO BID for 7 Days, CAP Prov:CAMERON RENO-C 08/29/18 Clotrimazole* (Clotrimazole* AF) 1% - 30 Gm Cream.gm., 1 APPLIC TOP BID for 7 Days, #1 TUB Prov:CAMERON RENO-C 06/21/18 Dicyclomine HCl (Dicyclomine HCl) 10 Mg Capsule, 10 MG PO TID PRN for ABDOMINAL CRAMPING, #20 CAP Prov:SEEDWINA JAMES C 03/14/18 Ibuprofen* (Ibuprofen*) 600 Mg Tablet, 600 MG PO Q6, #15 TAB Prov:EDWINA SAEZ 03/14/18 Ibuprofen* (Ibuprofen*) 400 Mg Tablet, 400 MG PO TID, #14 TAB Prov:VICENTE-AMIN,JORDAN MD 11/15/17 Zinc Ox/Camphor/Phenol/Jones Ac (UNGUENTINE OINTMENT) 28 Gm Oint...g., 28 GM TP BID for 7 Days Prov:JORDAN LOPEZ MD 11/15/17 valACYclovir HCl (Valtrex) 1,000 Mg Tablet, 1000 MG PO TID for 7 Days, TAB Prov:JORDAN LOPEZ MD 11/15/17 Naproxen* (Naprosyn*) 500 Mg Tablet, 500 MG PO BID PRN for PAIN AND/OR INFLAMMATION, #30 TAB Prov:CARA GUZMAN PA-C 09/20/17 Doxycycline Hyclate* (Doxycycline Hyclate*) 100 Mg Tablet.dr, 100 MG PO BID for 10 Days, TAB Prov:CARA GUZMAN PA-C 09/06/17 Ibuprofen* (Motrin*) 600 Mg Tab, 600 MG PO Q6H PRN for PAIN AND OR ELEVATED TEMP, #30 TAB Prov:CLARISSE GONZALEZ NP 09/02/17 Hydrocodone/Acetaminophen ([place] 5-325 Tablet) 1 Each Tablet, 1 TAB PO Q6H PRN for PAIN, #7 TAB Prov:CAMERON RENO PA-C 04/28/17 Ibuprofen* (Motrin*) 600 Mg Tab, 600 MG PO Q6, #30 TAB Prov:CAMERON RENO PA-C 04/28/17 Mupirocin* (Bactroban*) 2% -22 Gram Oint...g., 1 APPLIC TOP BID for 7 Days, #1 TUB Prov:ATIF MAYES PA-C 03/26/17 Hydrocortisone* Topical (Hydrocortisone* Topical) 2.5%-28.3 Gm Cream..g., 1 APPLIC TOP BID PRN for ITCHING, #1 TUB Prov:ATIF MAYES PA-C 03/26/17 Clotrimazole* (Clotrimazole* AF) 1% - 30 Gm Cream.gm., 1 APPLIC TOP BID for 7 Days, #1 TUB Prov:ATIF MAYES PA-C 03/26/17 Ondansetron (Ondansetron Odt) 4 Mg Tab.rapdis, 4 MG PO Q8 PRN for NAUSEA AND/OR VOMITING, #30 TAB Prov:CLARISSE GONZALEZ NP 03/09/17 Hydrocodone/Acetaminophen ([place] 5-325 Tablet) 1 Each Tablet, 1 TAB PO Q6H PRN for SEVERE PAIN LEVEL 7-10, #20 TAB Prov:CLARISSE GONZALEZ NP 03/09/17 Dextromethorphan Hb-Promethazine Hcl (Promethazine DM Syrup) 473 Ml Syrup, 5 ML PO QHS PRN for COUGH, #100 ML Prov:ATIF MAYES PA-C 07/17/16 Benzonatate* (Tessalon Perle*) 100 Mg Capsule, 100 MG PO Q8H PRN for COUGH, #20 CAP Prov:ATIF MAYES PA-C 07/17/16 Acetaminophen* (Tylophen*) 500 Mg Capsule, 1 CAP PO Q6H PRN for PAIN AND OR ELEVATED TEMP, #20 CAP Prov:LO WANG PA-C 05/23/16 Reported Medications [none] Unknown Strength No Conflict Check 03/08/17 Allergies Allergies: Coded Allergies: No Known Drug Allergies (Verified Allergy, Mild, 03/13/18) PMhx/Soc Medical and Surgical Hx: pt denies Medical Hx, pt denies Surgical Hx History of Surgery: No Anesthesia Reaction: No Hx Neurological Disorder: No Hx Respiratory Disorders: No Hx Cardiac Disorders: No Hx Psychiatric Problems: Yes (DEPRESSION, ANXIETY) Hx Miscellaneous Medical Probl: No Hx Alcohol Use: Yes (Socially) Hx Substance Use: No Hx Tobacco Use: Yes FmHx Family History: No diabetes Physical Exam Vitals Vital Signs Date Temp Pulse Resp B/P (MAP) Pulse Ox O2 O2 Flow FiO2 Time Delivery Rate 11/04/18 97.5 90 19 148/94 97 12:03 (112) Physical Exam GENERAL: Well-developed, well-nourished male. Appears in no acute distress. Speaking in full sentences. HEAD: Normocephalic, atraumatic. EYES: Pupils are equally reactive bilaterally. EOMs grossly intact. No conjunctival erythema. ENT: Moist mucous membranes. No uvula deviation. No kissing tonsils. NECK: Supple. No meningismus. Normal range of motion of the neck. LUNG: Clear to auscultation bilaterally. No rhonchi, wheezing, rales or coarse breath sounds. HEART: Regular rate and rhythm. No murmurs, rubs or gallops. Equal pulses in bilateral upper extremities. EXTREMITIES: Equal pulses bilaterally. No peripheral clubbing, cyanosis or edema. No unilateral leg swelling. Able to move bilateral upper extremities without any difficulty. Equal shank breaker strength bilaterally. NEUROLOGIC: Alert and oriented. Moving all four extremities without any difficulty. Normal speech. Steady gait. SKIN: Normal color. Warm and dry. No rashes or lesions. Result Diagram: 11/04/18 1230 11/04/18 1230 Results 24 hrs Laboratory Tests Test 11/04/18 12:30 White Blood Count 6.1 10^3/ul Red Blood Count 5.43 10^6/ul Hemoglobin 16.6 g/dl Hematocrit 48.0 % Mean Corpuscular Volume 88.4 fl Mean Corpuscular Hemoglobin 30.6 pg Mean Corpuscular Hemoglobin Concent 34.6 g/dl Red Cell Distribution Width 12.0 % Platelet Count 286 10^3/UL Mean Platelet Volume 9.3 fl Immature Granulocytes % 0.200 % Neutrophils % 61.3 % Lymphocytes % 27.8 % Monocytes % 7.9 % Eosinophils % 1.8 % Basophils % 1.0 % Nucleated Red Blood Cells % 0.0 /100WBC Immature Granulocytes # 0.010 10^3/ul Neutrophils # 3.8 10^3/ul Lymphocytes # 1.7 10^3/ul Monocytes # 0.5 10^3/ul Eosinophils # 0.1 10^3/ul Basophils # 0.1 10^3/ul Nucleated Red Blood Cells # 0.0 10^3/ul Sodium Level 142 mmol/L Potassium Level 4.4 mmol/L Chloride Level 106 mmol/L Carbon Dioxide Level 26 mmol/L Anion Gap 10 Blood Urea Nitrogen 14 mg/dl Creatinine 0.66 mg/dl Est Glomerular Filtrat Rate mL/min > 60 mL/min Glucose Level 104 mg/dl Calcium Level 9.7 mg/dl Troponin I < 0.012 ng/ml Current Medications Medications Dose Sig/Apolinar Start Time Status Last (Trade) Ordered Route PRN Stop Time Admin Dose Reason Admin Lorazepam 0.5 mg ONCE ONCE 11/04/18 DC 11/04/18 (Ativan) PO 12:30 12:40 11/04/18 12:31 Procedures/MDM x ED COURSE: The patient was stable throughout ED course. I kept the patient and/or family informed of laboratory and diagnostic imaging results throughout the ED course. EKG: Read by Dr. Razo, attending physician. EKG shows normal sinus rhythm at a rate of 84 bpm No arrhythmias, acute ST elevations or T wave changes were noted. DIAGNOSTIC IMAGING: Read by radiologist. Patient: WENDY BARKER : 1995 Age: 23 Sex: M MR #: [id number] DOS: 11/04/18 1319 Ordering MD: CAMERON RENO PA-C Location: [facility] Room/Bed: PROCEDURE: XR Chest. CLINICAL INDICATION: chest pain TECHNIQUE: Single frontal view of the chest was obtained COMPARISON: CR CHEST 06/02/2012 FINDINGS: The right lung apex was not completely included. The heart and mediastinum are within normal limits. The lungs are clear. There is no pleural effusion or pneumothorax. RPTAT: AA IMPRESSION: No acute disease. .Morales Gill MD, MD Date Time Electronically viewed and signed by .Morales Gill MD, MD on 11/04/2018 14:14 .S/ CC: CAMERON RENO PA-C [id number] PROCEDURES: None. MEDICATIONS GIVEN: Ativan MEDICAL DECISION MAKING: Review of the patient's [facility] records shows that patient has had 7 visits to the emergency department in the last 12 months. This is a 23-year-old male with past medical history of anxiety presents ER for concerns of left-sided chest pain, left arm numbness, palpitations and hand numbness and tingling which started around 7:30 AM. Symptoms started after doctor's visit. Patient states he is feeling anxious secondary to his health concerns. Patient denied any leg swelling, recent surgeries, travel. Vital signs were reviewed. Patient was afebrile. Patient was not hypoxic. Cardiac exam was normal. Lung exam was normal. EKG was within normal limits. Low suspicion for acute coronary syndrome, arrhythmia or pericarditis. CXR was within normal limits. Low suspicion for aortic dissection, pneumothorax, pneumonia or pleural effusion. PERC score is 0. Low suspicion for PE. Patient's HEART score is low. Low suspicion for acute cardiac event in the next 6 weeks. Patient was given Ativan here in the ER and did report improvement in symptoms. I do feel that patient's symptoms are likely related to anxiety. Patient was advised on stress management and anxiety reactions. Patient was nontoxic, [id number] prior to discharge. DISCHARGE: At this time, patient is stable for discharge and outpatient management. I have instructed the patient to follow-up with his/her primary care physician in 1-2 days. If symptoms persist, patient may need to see a specialist for further examinations and testing. I have instructed the patient to promptly return to the ER at any time for any new or worsening symptoms including increased increa sed pain, fever, nausea, vomiting, numbness, weakness, diaphoresis or LOC. The patient and/or family expressed understanding of and agreement with this plan. All questions were answered. Home care instructions were provided. Disclaimer: Inadvertent spelling and grammatical errors are likely due to EHR/dictation software use and do not reflect on the overall quality of patient care. Also, please note that the electronic time recorded on this note does not necessarily reflect the actual time of the patient encounter. Departure Diagnosis: Primary Impression: Chest pain Chest pain type: unspecified Qualified Codes: R07.9 - Chest pain, unspecified Additional Impression: Anxiousness Condition: Fair Patient Instructions: Anxiety Reaction, Chest Pain, Uncertain Cause Referrals: [facility] YOU HAVE RECEIVED A MEDICAL SCREENING EXAM AND THE RESULTS INDICATE THAT YOU DO NOT HAVE A CONDITION THAT REQUIRES URGENT TREATMENT IN THE EMERGENCY DEPARTMENT. FURTHER EVALUATION AND TREATMENT OF YOUR CONDITION CAN WAIT UNTIL YOU ARE SEEN IN YOUR DOCTORS OFFICE WITHIN THE NEXT 1-2 DAYS. IT IS YOUR RESPONSIBILITY TO MAKE AN APPOINTMENT FOR FOLOW-UP CARE. IF YOU HAVE A PRIMARY DOCTOR --you should call your primary doctor and schedule an appointment IF YOU DO NOT HAVE A PRIMARY DOCTOR YOU CAN CALL OUR PHYSICIAN REFERRAL HOTLINE AT IF YOU CAN NOT AFFORD TO SEE A PHYSICIAN YOU CAN CHOSE FROM THE FOLLOWING [facility] [address] [facility] [address] [facility] [address] [facility] [address] [facility] [address] [facility] [facility] [address] [facility]. [facility] YOU HAVE RECEIVED A MEDICAL SCREENING EXAM AND THE RESULTS INDICATE THAT YOU DO NOT HAVE A CONDITION THAT REQUIRES URGENT TREATMENT IN THE EMERGENCY DEPARTMENT. FURTHER EVALUATION AND TREATMENT OF YOUR CONDITION CAN WAIT UNTIL YOU ARE SEEN IN YOUR DOCTORS OFFICE WITHIN THE NEXT 1-2 DAYS. IT IS YOUR RESPONSIBILITY TO MAKE AN APPOINTMENT FOR FOLOW-UP CARE. IF YOU HAVE A PRIMARY DOCTOR --you should call your primary doctor and schedule and appointment IF YOU DO NOT HAVE A PRIMARY DOCTOR YOU CAN CALL OUR PHYSICIAN REFERRAL HOTLINE AT . IF YOU CAN NOT AFFORD TO SEE A PHYSICIAN YOU CAN CHOSE FROM THE FOLLOWING [facility] INSTITUTIONS: [facility] [address] [place] [address] [facility] [address] [place] [address] [facility] + [facility] [address] [place] [address] Additional Instructions: Call your primary care doctor TOMORROW for an appointment during the next 1-2 days.See the doctor sooner or return here if your condition worsens before your appointment time. CAMERON RENO PA-C November 04, 2018 13:44
== END 2018-11-04 15:24 | disposition home or self-care (01) ==
LOC: FTE 12:01
DX: R07.9 Chest pain, unspecified (principal); F41.9 Anxiety disorder, unspecified; Z87.891 Personal history of nicotine dependence
CPT/HCPCS: 36415; 71045; 80048; 84484; 85025; 93005

== ENCOUNTER 2018-11-21 01:07 | Emergency (ER) | payer OTHER ==
[~2018-11-21] VITALS: Ht 165.1 cm; Wt 74.8 kg
[2018-11-21 01:13] VITALS: Ht 165.1 cm; Wt 74.8 kg
[2018-11-21] MEDS ORDERED: ACETAMINOPHEN 500 MG TAB PO STA (02:38)
[2018-11-21] MEDS ORDERED: ACET500C5 PO (02:47)
--- NOTE | 2018-11-21 03:08 | ERD ---
ER Documentation Chief Complaint Chief Complaint Pt reports laughing too hard at work and hit head on wall HPI Does not take blood thinners this is a 23-year-old male with a nonsignificant past medical history presents ED after striking head on wall around 10 AM this morning. Patient states that he was laughing to hard at work and accidentally struck his posterior head on a wall. Patient did not have any loss of consciousness with this event. Patient has been having a headache that has been gradual in onset and not the worst headache of his life. Patient admits to feeling slightly lightheaded with some brain fogginess. Patient denies any blurry vision, changes in vision, dizziness, worst headache of life, confusion, weakness, tingling, numbness. Patient admits to feeling nauseous with one episode of vomiting. Does not take blood thinners. ROS All systems reviewed and are negative except as per history of present illness. Medications Home Meds Active Scripts Acetaminophen* (Tylophen*) 500 Mg Capsule, 1 CAP PO Q6H PRN for PAIN AND OR ELEVATED TEMP, #20 CAP Prov:JESSE VELEZ PA-C 11/21/18 Guaifenesin-Dextromethorphan* (Robitussin* DM) 100MG/10MG/5ML Syrup, 5 ML PO Q4H PRN for COUGH, #4 OZ Prov:CAMERON RENO PA-C 08/29/18 Ibuprofen* (Motrin*) 600 Mg Tab, 600 MG PO Q6, #30 TAB Prov:CAMERON RENO PA-C 08/29/18 Amoxicillin* (Amoxicillin*) 500 Mg Cap, 500 MG PO BID for 7 Days, CAP Prov:CAMERON RENO PA-C 08/29/18 Clotrimazole* (Clotrimazole* AF) 1% - 30 Gm Cream.gm., 1 APPLIC TOP BID for 7 Days, #1 TUB Prov:CAMERON RENO PA-C 06/21/18 Dicyclomine HCl (Dicyclomine HCl) 10 Mg Capsule, 10 MG PO TID PRN for ABDOMINAL CRAMPING, #20 CAP Prov:EDWINA SAEZ 03/14/18 Ibuprofen* (Ibuprofen*) 600 Mg Tablet, 600 MG PO Q6, #15 TAB Prov:EDWINA SAEZ 03/14/18 Ibuprofen* (Ibuprofen*) 400 Mg Tablet, 400 MG PO TID, #14 TAB Prov:JORDAN LOPEZ MD 11/15/17 Zinc Ox/Camphor/Phenol/Jones Ac (UNGUENTINE OINTMENT) 28 Gm Oint...g., 28 GM TP BID for 7 Days Prov:JORDAN LOPEZ MD 11/15/17 valACYclovir HCl (Valtrex) 1,000 Mg Tablet, 1000 MG PO TID for 7 Days, TAB Prov:JORDAN LOPEZ MD 11/15/17 Naproxen* (Naprosyn*) 500 Mg Tablet, 500 MG PO BID PRN for PAIN AND/OR INFLAMM ATION, #30 TAB Prov:CARA GUZMAN PA-C 09/20/17 Doxycycline Hyclate* (Doxycycline Hyclate*) 100 Mg Tablet.dr, 100 MG PO BID for 10 Days, TAB Prov:CARA GUZMAN PA-C 09/06/17 Ibuprofen* (Motrin*) 600 Mg Tab, 600 MG PO Q6H PRN for PAIN AND OR ELEVATED TEMP, #30 TAB Prov:CLARISSE GONZALEZ NP 09/02/17 Hydrocodone/Acetaminophen ([place] 5-325 Tablet) 1 Each Tablet, 1 TAB PO Q6H PRN for PAIN, #7 TAB Prov:CAMERON RENO PA-C 04/28/17 Ibuprofen* (Motrin*) 600 Mg Tab, 600 MG PO Q6, #30 TAB Prov:CAMERON RENO PA-C 04/28/17 Mupirocin* (Bactroban*) 2% -22 Gram Oint...g., 1 APPLIC TOP BID for 7 Days, #1 TUB Prov:ATIF MAYES PA-C 03/26/17 Hydrocortisone* Topical (Hydrocortisone* Topical) 2.5%-28.3 Gm Cream..g., 1 APPLIC TOP BID PRN for ITCHING, #1 TUB Prov:ATIF MAYES PA-C 03/26/17 Clotrimazole* (Clotrimazole* AF) 1% - 30 Gm Cream.gm., 1 APPLIC TOP BID for 7 Days, #1 TUB Prov:ATIF MAYES PA-C 03/26/17 Ondansetron (Ondansetron Odt) 4 Mg Tab.rapdis, 4 MG PO Q8 PRN for NAUSEA AND/OR VOMITING, #30 TAB Prov:CLARISSE GONZALEZ NP 03/09/17 Hydrocodone/Acetaminophen ([place] 5-325 Tablet) 1 Each Tablet, 1 TAB PO Q6H PRN for SEVERE PAIN LEVEL 7-10, #20 TAB Prov:CLARISSE GONZALEZ CHANGE AGENT 03/09/17 Dextromethorphan Hb-Promethazine Hcl (Promethazine DM Syrup) 473 Ml Syrup, 5 ML PO QHS PRN for COUGH, #100 ML Prov:ATIF MAYES PA-C 07/17/16 Benzonatate* (Tessalon Perle*) 100 Mg Capsule, 100 MG PO Q8H PRN for COUGH, #20 CAP Prov:ATIF MAYES PA-C 07/17/16 Acetaminophen* (Tylophen*) 500 Mg Capsule, 1 CAP PO Q6H PRN for PAIN AND OR ELEVATED TEMP, #20 CAP Prov:LO WANG PA-C 05/23/16 Reported Medications [none] Unknown Strength No Conflict Check 03/08/17 Allergies Allergies: Coded Allergies: No Known Drug Allergies (Verified Allergy, Mild, 03/13/18) PMhx/Soc History of Surgery: No Anesthesia Reaction: No Hx Neurological Disorder: No Hx Respiratory Disorders: No Hx Cardiac Disorders: No Hx Psychiatric Problems: Yes (DEPRESSION, ANXIETY) Hx Miscellaneous Medical Probl: No Hx Alcohol Use: Yes (Socially) Hx Substance Use: No Hx Tobacco Use: Yes Smoking Status: Current every day smoker FmHx Family History: No diabetes Physical Exam Vitals Vital Signs Date Temp Pulse Resp B/P (MAP) Pulse Ox O2 O2 Flow FiO2 Time Delivery Rate 11/21/18 98.3 80 16 134/83 100 01:13 (100) Physical Exam Physical Exam Vitals signs: Reviewed by me. General: Well developed, well nourished, in no acute distress. Patient is awake and alert. Head: Normocephalic, atraumatic. Eyes: Normal conjunctiva, Pupils PERRLA, EOM intact grossly, no periorbital ecchymosis, no mastoid ecchymosis or mastoid tenderness ENT: Pharynx is clear, Moist mucous membranes, external ears, nose and mouth normal, no blood seen in posterior oropharynx, no hemotympanum, no septal hematoma Neck: Supple, no masses, lymphadenopathy or JVD Respiratory: Clear to auscultation bilaterally with no wheezing, rhonchi, rales, no distress Cardiovascular: RRR, no murmurs, rubs, or gallops MSK: No edema, no unilateral swelling, 5/5 strength Back: No midline tenderness. No flank tenderness Neurologic: Alert and oriented, moving all extremities, normal speech, no focal weakness, no cerebellar signs. Normal mentation Neuro: M/S: Alert and oriented x 3 Face: EOMI, face and pharynx with normal sensation and function Motor: Normal strength throughout Sensation: Normal sensation throughout Speech: Normal Cerebel: Normal coordination Normal gait Normal finger to nose Cranial nerves II through XII intact bilaterally Skin: warm and dry, No rash Psych: Normal mood Results 24 hrs Current Medications Medications Dose Sig/Apolinar Start Time Status Last (Trade) Ordered Route PRN Stop Time Admin Dose Reason Admin 1,000 mg ONCE STAT 11/21/18 DC 11/21/18 Acetaminophen PO 02:38 02:49 (Tylenol 11/21/18 02:39 Tab) Procedures/MDM ER COURSE: The patient was stable throughout ED course. I kept the patient and/or family informed of laboratory and diagnostic imaging results throughout the emergency room course. The patient was promptly evaluated and a treatment plan was devised based on H&P and other data. This plan was discussed with the patient who agreed and had no further questions or concerns prior to discharge. MEDICAL DECISION MAKING: Does not take blood thinners this is a 23-year-old male with a nonsignificant past medical history presents ED after striking head on wall around 10 AM this morning. Per the [place] head CT rule out advanced imaging at this time is unnecessary. Discussed the risks associated with doing advanced imaging at this time and patient has decided to defer advanced imaging at this time.. The patient's headache is unlikely related to serious etiology. The patient does not exhibit any clinical signs or symptoms, and has no risk factors to suggest headache etiology such as skull fracture, facial fracture intracranial hemorrhage, midline shift, subarachnoid hemorrhage, acute vertebral or carotid dissection, intracranial mass, epidural, subdural hematoma, dural venous sinus thrombosis, giant cell arteritis, or pseudotumor cerebri. Given patient's SHAYY and symptoms, I will treat patient conservatively for concussion. Advised no NSAIDs and no contact sports until cleared by primary care. And also advised brain rest. Patient's vitals are stable and she can be managed outpatient with close follow-up. Patient follow-up with her primary care in the next 48 hours. Advised patient to return to ED with any worsening symptoms DISPOSITION PLAN: We discussed follow up with the patient's primary care doctor within 24 to 48 hours. Patient counseled regarding my diagnostic impression and care plan. Prior to discharge all questions answered. Pt agrees with treatment plan and understands strict return precautions. Precautionary instructions provided including instructions to return to the ER if not improving or for any worsening or changing symptoms or concerns. ExitCare instructions provided. Prior to discharge, patients vital signs have been reviewed SPECIALIST FOLLOW UP RECOMMENDED: None Patient has been advised to follow up with primary care in 1-2 days. Disclaimer: Inadvertent spelling and grammatical errors are likely due to EHR/dictation software use and do not reflect on the overall quality of patient care. Also, please note that the electronic time recorded on this note does not necessarily reflect the actual time of the patient encounter. Blood Pressure Assessment: Patient's blood pressure was elevated (>120/80) but appears stable without evidence of hypertension emergency or urgency. The patient was counseled about the risks of hypertension and urged to pursue outpatient monitoring and therapy within a week with their primary care physician. Departure Diagnosis: Primary Impression: Acute head injury without loss of consciousness Encounter type: initial encounter Qualified Codes: S09.90XA - Unspecified injury of head, initial encounter Additional Impression: Concussion Encounter type: initial encounter Loss of consciousness presence/duration: without LOC Qualified Codes: S06.0X0A - Concussion without loss of consciousness, initial encounter Condition: Stable Patient Instructions: Concussion, Concussion, No Wake Up Referrals: COMMUNITY CLINICS YOU HAVE RECEIVED A MEDICAL SCREENING EXAM AND THE RESULTS INDICATE THAT YOU DO NOT HAVE A CONDITION THAT REQUIRES URGENT TREATMENT IN THE EMERGENCY DEPARTMENT. FURTHER EVALUATION AND TREATMENT OF YOUR CONDITION CAN WAIT UNTIL YOU ARE SEEN IN YOUR DOCTORS OFFICE WITHIN THE NEXT 1-2 DAYS. IT IS YOUR RESPONSIBILITY TO MAKE AN APPOINTMENT FOR FOLOW-UP CARE. IF YOU HAVE A PRIMARY DOCTOR --you should call your primary doctor and schedule an appointment IF YOU DO NOT HAVE A PRIMARY DOCTOR YOU CAN CALL OUR PHYSICIAN REFERRAL HOTLINE AT IF YOU CAN NOT AFFORD TO SEE A PHYSICIAN YOU CAN CHOSE FROM THE FOLLOWING [facility] [address] [facility] [address] [facility] [address] [facility] [address] [facility] [address] [facility]. [facility] [address] Additional Instructions: Patient advised to return to the ED immediately for new or worsening symptoms. Patient advised to follow up with primary care provider in the next 24-48 hours. Patient verbalized understanding and agrees with treatment plan and course of action. If patient has no primary care they may follow up with one of the community clinics listed on the following page or one of the options listed below [facility] + [facility] [address] [place] [phone] or [facility] [address] [place] [address] or [facility] [address] [place] [address] JESSE VELEZ PA-C November 21, 2018 03:08
[2018-11-21 03:20] VITALS: BP 124/75; PULSE 70; RESP 16
== END 2018-11-21 03:25 | disposition home or self-care (01) ==
LOC: FTE 01:07
DX: S06.0X0A Concussion without loss of consciousness, initial encounter (principal); F17.210 Nicotine dependence, cigarettes, uncomplicated; W22.01XA Walked into wall, initial encounter; Y92.89 Other specified places as the place of occurrence of the external cause
CPT/HCPCS: 99283

== ENCOUNTER 2019-01-09 22:32 | Emergency (ER) | payer OTHER ==
[~2019-01-09] VITALS: Ht 165.1 cm; Wt 75.5 kg
[2019-01-09 22:37] VITALS: Ht 165.1 cm; Wt 75.5 kg
[2019-01-10] MEDS ORDERED: ONDANSETRON (ODT) 4 MG TAB ODT STA (01:57)
[2019-01-10] MEDS ORDERED: IBUPROFEN 800 MG TAB PO ONE (02:00)
--- NOTE | 2019-01-10 02:06 | ERD ---
ER Documentation Chief Complaint Chief Complaint ROY, VOMITING, LACK OF FOCUS. HEAD INJURY 2 WEEKS AGO HPI Patient is a 23 years old male who denies past medical history presenting to the clinic for multiple complaints. Patient reports of one episode of NBNB emesis yesterday with headache and lack of focus. Patient had a concussion 2 weeks ago and was evaluated in the ED with no abnormalities. Patient then followed up with his PCP who ordered a head CT that was negative. Patient reports receiving oral sex a few days ago and is now reporting of dysuria. Patient denies fever, chills, night sweats, penile discharge, abdominal pain. Patient is also complaining of throat infection that has been bothering for some time now. Patient admits to being a former heavy smoker and feels like his neck is swollen. ROS All systems reviewed and are negative except as per history of present illness. Medications Home Meds Active Scripts Ibuprofen* (Motrin*) 800 Mg Tab, 800 MG PO Q6H PRN for PAIN AND OR ELEVATED TEMP, #30 TAB Prov:RODERICK COLLINS PA-C 01/10/19 Ondansetron Hcl* (Zofran*) 4 Mg Tablet, 4 MG PO Q8H PRN for NAUSEA AND/OR VOM ITING, #30 TAB Prov:RODERICK COLLISN PA-C 01/10/19 Acetaminophen* (Tylophen*) 500 Mg Capsule, 1 CAP PO Q6H PRN for PAIN AND OR ELEVATED TEMP, #20 CAP Prov:JESSE VELEZ PA-C 11/21/18 Guaifenesin-Dextromethorphan* (Robitussin* DM) 100MG/10MG/5ML Syrup, 5 ML PO Q4H PRN for COUGH, #4 OZ Prov:CAMERON RENO PA-C 08/29/18 Ibuprofen* (Motrin*) 600 Mg Tab, 600 MG PO Q6, #30 TAB Prov:CAMERON RENO PA-C 08/29/18 Amoxicillin* (Amoxicillin*) 500 Mg Cap, 500 MG PO BID for 7 Days, CAP Prov:CAMERON RENO PA-C 08/29/18 Clotrimazole* (Clotrimazole* AF) 1% - 30 Gm Cream.gm., 1 APPLIC TOP BID for 7 Days, #1 TUB Prov:CAMERON RENO PA-C 06/21/18 Dicyclomine HCl (Dicyclomine HCl) 10 Mg Capsule, 10 MG PO TID PRN for ABDOMINAL CRAMPING, #20 CAP Prov:SEEDWINA Carlos 03/14/18 Ibuprofen* (Ibuprofen*) 600 Mg Tablet, 600 MG PO Q6, #15 TAB Prov:PETER SAEZBRIAN Gonzalez 03/14/18 Ibuprofen* (Ibuprofen*) 400 Mg Tablet, 400 MG PO TID, #14 TAB Prov:JORDAN LOPEZ MD 11/15/17 Zinc Ox/Camphor/Phenol/Jones Ac (UNGUENTINE OINTMENT) 28 Gm Oint...g., 28 GM TP BID for 7 Days Prov:JORDAN LOPEZ MD 11/15/17 valACYclovir HCl (Valtrex) 1,000 Mg Tablet, 1000 MG PO TID for 7 Days, TAB Prov:JORDAN LOPEZ MD 11/15/17 Naproxen* (Naprosyn*) 500 Mg Tablet, 500 MG PO BID PRN for PAIN AND/OR INFLAMMATION, #30 TAB Prov:CARA GUZMAN PA-C 09/20/17 Doxycycline Hyclate* (Doxycycline Hyclate*) 100 Mg Tablet.dr, 100 MG PO BID for 10 Days, TAB Prov:CARA GUZMAN PA-C 09/06/17 Ibuprofen* (Motrin*) 600 Mg Tab, 600 MG PO Q6H PRN for PAIN AND OR ELEVATED TEMP, #30 TAB Prov:CLARISSE GONZALEZ NP 09/02/17 Hydrocodone/Acetaminophen ([place] 5-325 Tablet) 1 Each Tablet, 1 TAB PO Q6H PRN for PAIN, #7 TAB Prov:CAMERON RENO PA-C 04/28/17 Ibuprofen* (Motrin*) 600 Mg Tab, 600 MG PO Q6, #30 TAB Prov:CAMERON RENO PA-C 04/28/17 Mupirocin* (Bactroban*) 2% -22 Gram Oint...g., 1 APPLIC TOP BID for 7 Days, #1 TUB Prov:ATIF MAYES PA-C 03/26/17 Hydrocortisone* Topical (Hydrocortisone* Topical) 2.5%-28.3 Gm Cream..g., 1 APPLIC TOP BID PRN for ITCHING, #1 TUB Prov:ATIF MAYES PA-C 03/26/17 Clotrimazole* (Clotrimazole* AF) 1% - 30 Gm Cream.gm., 1 APPLIC TOP BID for 7 Days, #1 TUB Prov:ATIF MAYES PA-C 03/26/17 Ondansetron (Ondansetron Odt) 4 Mg Tab.rapdis, 4 MG PO Q8 PRN for NAUSEA AND/OR VOMITING, #30 TAB Prov:CLARISSE GONZALEZ [employer]CELING MACHINE OPERATOR 03/09/17 Hydrocodone/Acetaminophen ([place] 5-325 Tablet) 1 Each Tablet, 1 TAB PO Q6H PRN for SEVERE PAIN LEVEL 7-10, #20 TAB Prov:CLARISSE GONZALEZ CANCELING MACHINE OPERATOR 03/09/17 Dextromethorphan Hb-Promethazine Hcl (Promethazine DM Syrup) 473 Ml Syrup, 5 ML PO QHS PRN for COUGH, #100 ML Prov:ATIF MAYES PA-C 07/17/16 Benzonatate* (Tessalon Perle*) 100 Mg Capsule, 100 MG PO Q8H PRN for COUGH, #20 CAP Prov:ATIF MAYES PA-C 07/17/16 Acetaminophen* (Tylophen*) 500 Mg Capsule, 1 CAP PO Q6H PRN for PAIN AND OR ELEVATED TEMP, #20 CAP Prov:LO WANG PA-C 05/23/16 Reported Medications [none] Unknown Strength No Conflict Check 03/08/17 Allergies Allergies: Coded Allergies: No Known Drug Allergies (Verified Allergy, Mild, 03/13/18) PMhx/Soc History of Surgery: No Anesthesia Reaction: No Hx Neurological Disorder: Yes (Concussion) Hx Respiratory Disorders: No Hx Cardiac Disorders: No Hx Psychiatric Problems: Yes (DEPRESSION, ANXIETY) Hx Miscellaneous Medical Probl: No Hx Alcohol Use: Yes (Socially) Hx Substance Use: No Hx Tobacco Use: Yes Smoking Status: Former smoker Physical Exam Vitals Vital Signs Date Temp Pulse Resp B/P (MAP) Pulse Ox O2 O2 Flow FiO2 Time Delivery Rate 01/09/19 97.8 83 18 141/82 97 22:37 (101) Physical Exam Const: No acute distress Head: Atraumatic Eyes: Normal Conjunctiva ENT: Normal External Ears, Nose and Mouth. Unremarkable oropharyngeal exam. Neck: Full range of motion. No meningismus. No signs of cervical lymphadenopathy or swelling. Unremarkable neck exam. Resp: Clear to auscultation bilaterally Cardio: Regular rate and rhythm, no murmurs Back: No midline or flank tenderness. Negative CVAT. Neur: Awake and alert Psych: Normal Mood and Affect Results 24 hrs Laboratory Tests Test 01/10/19 03:27 Bedside Urine pH (LAB) 7.0 Bedside Urine Protein (LAB) Negative Bedside Urine Glucose (UA) Negative Bedside Urine Ketones (LAB) Negative Bedside Urine Blood Negative Bedside Urine Nitrite (LAB) Negative Bedside Urine Leukocyte Esterase (L Negative Current Medications Medications Dose Sig/Apolinar Start Time Status Last (Trade) Ordered Route PRN Stop Time Admin Dose Reason Admin Ondansetron 4 mg ONCE STAT 01/10/19 DC 01/10/19 HCl (Zofran ODT 01:57 02:23 Odt) 01/10/19 01:58 Ibuprofen 800 mg ONCE ONCE 01/10/19 DC 01/10/19 (Motrin) PO 02:00 02:23 01/10/19 02:01 Procedures/MDM Patient was seen and evaluated for dysuria, vomiting. Patient is exhibiting signs of anxiety to a generally unremarkable physical exam. Urinalysis is unr emarkable. Further work-up required for today's visit. Patient was given Zofran and ibuprofen in ED with improvement of symptoms. Stable ready for discharge. Follow-up with PCP for STI work-up. Will be discharged with Zofran and ibuprofen. Departure Diagnosis: Primary Impression: Emesis Vomiting type: unspecified Vomiting Intractability: intractable Nausea presence: without nausea Qualified Codes: R11.11 - Vomiting without nausea Additional Impression: Headache Headache type: unspecified Headache chronicity pattern: acute headache Intractability: intractable Qualified Codes: R51 - Headache Patient Instructions: Vomiting (6Y-Adult), Self-Care for Headaches Referrals: [facility] Additional Instructions: Patient advised to return to the ED immediately for new or worsening symptoms. Patient advised to follow up with primary care provider in the next 24-48 hours. Patient verbalized understanding and agrees with treatment plan and course of action. If patient has no primary care they may follow up with [facility] + [facility] [address] [place] [address] or [facility] [address] [place] [address] [facility] [address] [place] [address] RODERICK COLLINS PA-C Jan 10, 2019 02:06
[2019-01-10] MEDS ORDERED: ONDA4TAB8 PO (02:07)
[2019-01-10] MEDS ORDERED: IBUP800T48 PO (02:07)
[2019-01-10 03:56] VITALS: BP 133/78; PULSE 77; RESP 16
== END 2019-01-10 03:56 | disposition home or self-care (01) ==
LOC: FTE 22:32
DX: R11.11 Vomiting without nausea (principal); Z87.891 Personal history of nicotine dependence
CPT/HCPCS: 81003; 99283

== ENCOUNTER 2019-03-04 12:49 | Emergency (ER) | payer OTHER ==
[~2019-03-04] VITALS: Ht 175.3 cm; Wt 75.3 kg
[~2019-03-04 12:49] MED LIST changes: +ALBU8.5H8 INH; +GUAI120S25 PO; +IBUP800T48 PO; +ONDA4TAB8 PO
[2019-03-04 12:56] VITALS: Ht 175.3 cm; Wt 75.3 kg
[2019-03-04] MEDS ORDERED: IPRATROPIUM (NEB) 0.5 MG/2.5 ML AMP NEB STA (13:20)
[2019-03-04] MEDS ORDERED: DEXAMETHASONE 10 MG/ML 1 ML INJ IM STA (13:20)
[2019-03-04] MEDS ORDERED: ALBUTEROL 0.083% (NEB) 2.5 MG/3 ML AMP NEB STA (13:20)
[2019-03-04 14:39] VITALS: BP 116/75; PULSE 81; RESP 20
== END 2019-03-04 16:42 | disposition home or self-care (01) ==
LOC: FTE 12:49
DX: J20.9 Acute bronchitis, unspecified (principal); F17.210 Nicotine dependence, cigarettes, uncomplicated
CPT/HCPCS: 71045; 94664; 96372; 99284; J1100

== ENCOUNTER 2019-04-25 13:42 | Day surgery (SDC) | payer OTHER ==
[~2019-04-25] VITALS: Ht 165.1 cm; Wt 73.6 kg
[2019-04-25] VITALS (14 sets, daily range): BP systolic 114–147; BP diastolic 68–92; PULSE 60–83; RESP 13–22; Ht 165.1 cm; Wt 73.6 kg
[~2019-04-25 13:42] MED LIST changes: +DOXY-214 PO; -DOXY100T20 PO; +OXYC-279 PO
[2019-04-25] MEDS ORDERED: ROCURONIUM 50 MG INJ ONE (15:27)
[2019-04-25] MEDS ORDERED: PROPOFOL 20 ML ONE (15:27)
[2019-04-25] MEDS ORDERED: NEOSTIGMINE 3 MG/3 ML SYRINGE ONE (15:27)
[2019-04-25] MEDS ORDERED: GLYCOPYRROLATE 0.4 MG INJ ONE (15:27)
[2019-04-25] MEDS ORDERED: ONDANSETRON 4 MG INJ ONE (15:28)
[2019-04-25] MEDS ORDERED: DEXAMETHASONE 4 MG/ML 5 ML INJ ONE (15:28)
[2019-04-25] MEDS ORDERED: FENTAnyl 50 MCG/ML VIAL ONE ×2 (15:28→16:49)
[2019-04-25] MEDS ORDERED: MIDAZOLAM 1 MG/ML 2 ML INJ ONE (15:28)
[2019-04-25] MEDS ORDERED: LACTATED RINGER'S 1,000 ML IV SCH (15:30)
[2019-04-25] MEDS ORDERED: DESFLURANE 15 MIN ONE (15:30)
[2019-04-25] MEDS ORDERED: HYDROmorphONE 1 MG/5 ML IV SYRINGE IV ONE (16:54)
[2019-04-25] MEDS ORDERED: DIPHENHYDRAMINE 50 MG INJ IV PRN (17:00)
[2019-04-25] MEDS ORDERED: MIDAZOLAM 1 MG/ML 2 ML INJ IV PRN (17:00)
[2019-04-25] MEDS ORDERED: LABETALOL HCL 20MG INJ IV PRN (17:00)
[2019-04-25] MEDS ORDERED: TRIMETHOBENZAMIDE 100 MG/ML VIAL IM PRN (17:00)
[2019-04-25] MEDS ORDERED: hydrALAzine 20 MG INJ IV PRN (17:00)
[2019-04-25] MEDS ORDERED: ONDANSETRON 4 MG INJ IV PRN (17:00)
[2019-04-25] MEDS ORDERED: HYDROmorphONE 1 MG/5 ML IV SYRINGE IV PRN ×2 (17:00)
[2019-04-25] MEDS ORDERED: EPHEDrine 25 MG/5 ML SYG IV PRN (17:00)
[2019-04-25] MEDS ORDERED: OXYCODONE/ACETAMINOPHEN (5/325) TAB PO PRN ×2 (17:00)
[2019-04-25] MEDS ORDERED: HYDROCODONE/APAP (5/325) TAB PO PRN (17:00)
[2019-04-25] MEDS ORDERED: FENTAnyl 50 MCG/ML VIAL IV PRN ×2 (17:00)
[2019-04-25] MEDS ORDERED: ALBUTEROL 0.083% (NEB) 2.5 MG/3 ML AMP HHN PRN (17:00)
[2019-04-25] MEDS ORDERED: MEPERIDINE 25 MG INJ IV PRN (17:00)
[2019-04-25] MEDS ORDERED: IPRATROPIUM (NEB) 0.5 MG/2.5 ML AMP HHN PRN (17:00)
[2019-04-25] MEDS: FENTAnyl 50 MCG/ML VIAL IV PRN ×2 (17:11→17:18)
[2019-04-25] MEDS: HYDROmorphONE 1 MG/5 ML IV SYRINGE IV PRN ×2 (17:12→17:18)
== END 2019-04-25 19:36 | disposition home or self-care (01) ==
LOC: SDS 13:42
PROVIDERS: ATTEND Otolaryngology
DX: J35.01 Chronic tonsillitis (principal); Z87.891 Personal history of nicotine dependence
CPT/HCPCS: 42826; 88304; J1100; J1170; J2250; J2405; J2710; J3010

== ENCOUNTER 2019-04-27 15:12 | Emergency (ER) | payer OTHER ==
[~2019-04-27] VITALS: Ht 170.2 cm; Wt 72.9 kg
[~2019-04-27 15:12] MED LIST changes: -ACET500C5 PO; -ALBU8.5H8 INH; -AMOX500C2 PO; -BENZ-6 PO; -CLOT30CR24 TOP; -D-ME473S18 PO; -DICY10CA40 PO; -DOXY-214 PO; -GUAI120S25 PO; -GUAI5SYR2 PO; -HC30CR25 TOP; -HYDR-4011 PO; -IBUP-1541 PO; -IBUP-1542 PO; -IBUP800T48 PO; -MUPI22OI2 TOP; -NAPR-985 PO; -ONDA4TAB14 PO; -ONDA4TAB8 PO; -VALA10004 PO; -ZINC28OI TP
[2019-04-27 15:17] VITALS: Ht 170.2 cm; Wt 72.9 kg
[2019-04-27] MEDS ORDERED: OXYCODONE/ACETAMINOPHEN (5/325) TAB PO ONE (17:00)
[2019-04-27 19:14] VITALS: BP 112/6; PULSE 70; RESP 20
== END 2019-04-27 19:16 | disposition home or self-care (01) ==
LOC: FTE 15:12
DX: G89.18 Other acute postprocedural pain (principal)
CPT/HCPCS: 36415; 76705; 80053; 80307; 81003; 83690; 85025